=== PATIENT | female | born 1995 | race Caucasian/White ===

== ENCOUNTER 2022-06-30 12:14 | Emergency (ER) | payer OTHER ==
[~2022-06-30] VITALS: Ht 154.9 cm; Wt 65.8 kg
--- NOTE | 2022-06-30 12:21 | NUR ---
name called in lobby, no answer
[2022-06-30 12:31] VITALS: BP 114/65
[2022-06-30] MEDS ORDERED: IBUP-2213 PO (13:25)
== END 2022-06-30 13:49 | disposition home or self-care (01) ==
LOC: MED 12:14
DX: S93.602A Unspecified sprain of left foot, initial encounter (principal); X58.XXXA Exposure to other specified factors, initial encounter; Y93.89 Activity, other specified; Y92.89 Other specified places as the place of occurrence of the external cause; Y99.8 Other external cause status
CPT/HCPCS: 29515; 73600; 73630; 99284